=== PATIENT | female | born 1975 | race Asian ===

== ENCOUNTER 2024-08-04 15:24 | Emergency (ER) | payer MEDICAID ==
[~2024-08-04] VITALS: Ht 157.5 cm; Wt 75.0 kg
[~2024-08-04 15:24] MED LIST: NO HOME MEDS
[2024-08-04 15:43] VITALS: BP 157/88; PULSE 70; RESP 16; O2SAT 98
[2024-08-04 17:52] VITALS: TEMP 97.7
== END 2024-08-04 17:59 | disposition home or self-care (01) ==
LOC: ER 15:25
DX: S20.211A Contusion of right front wall of thorax, initial encounter (principal); S70.11XA Contusion of right thigh, initial encounter; W18.39XA Other fall on same level, initial encounter; Y93.89 Activity, other specified; Y92.89 Other specified places as the place of occurrence of the external cause; Y99.8 Other external cause status
CPT/HCPCS: 71101; 99283